=== PATIENT | male | born 1950 | race Caucasian/White ===

== ENCOUNTER 2022-04-06 11:21 | Emergency (ER) | payer MEDICARE ==
[2022-04-06] VITALS (14 sets, daily range): BP systolic 156–183; BP diastolic 83–127
[2022-04-06] MEDS ORDERED: NAPROXEN220 MG (12:18)
[2022-04-06] MEDS ORDERED: VALSARTAN80 MG (12:19)
[2022-04-06] MEDS ORDERED: LIPITOR10 M1 PO (12:20)
[2022-04-06] MEDS ORDERED: BUPROPION100 MG PO (12:20)
[2022-04-06] MEDS ORDERED: MEDDOSEPAK PO (14:14)
[2022-04-06] MEDS ORDERED: NAPROXEN500 MG PO (14:14)
[2022-04-06] MEDS ORDERED: LORTAB 5/3255 MG PO (14:14)
== END 2022-04-06 15:23 | disposition home or self-care (01) ==
LOC: ED 11:21
DX: M25.552 Pain in left hip (principal); M16.0 Bilateral primary osteoarthritis of hip; E11.9 Type 2 diabetes mellitus without complications